=== PATIENT | male | born 1985 | race Caucasian/White ===

== ENCOUNTER 2018-04-20 17:33 | Emergency (ER) | payer SELFPAY ==
[~2018-04-20] VITALS: Ht 188 cm; Wt 100.0 kg
[2018-04-20] MEDS: MORPHINE SULFATE 4 MG/ML, 1ML IVPush PRN ×2 (18:05→19:30)
[2018-04-20] MEDS ORDERED: ONDANSETRON ODT 4 MG PO ONE (18:30)
[2018-04-20] MEDS ORDERED: SODIUM CHLORIDE FLUSH 10ML SYR IVF ONE (18:30)
[2018-04-20] MEDS ORDERED: MORPHINE SULFATE 4 MG/ML, 1ML ONE ×2 (18:37→19:25)
[2018-04-20] MEDS ORDERED: ONDANSETRON ODT 4 MG ONE (18:39)
[2018-04-20 19:32] VITALS: BP 120/81
== END 2018-04-20 21:28 | disposition home or self-care (01) ==
LOC: ED 19:08
DX: S52.572A Other intraarticular fracture of lower end of left radius, initial encounter for closed fracture (principal); S42.035A Nondisplaced fracture of lateral end of left clavicle, initial encounter for closed fracture; S52.501A Unspecified fracture of the lower end of right radius, initial encounter for closed fracture; V29.9XXA Motorcycle rider (driver) (passenger) injured in unspecified traffic accident, initial encounter; Y93.55 Activity, bike riding; Y92.89 Other specified places as the place of occurrence of the external cause; Y99.8 Other external cause status
CPT/HCPCS: 29105; 71046; 73000; 73080; 73110; 96374; 96376; 99284; Q0162

== ENCOUNTER 2018-04-23 04:04 | Emergency (ER) | payer SELFPAY ==
[~2018-04-23] VITALS: Ht 188 cm; Wt 113.1 kg
[2018-04-23 04:08] VITALS: BP 136/86
== END 2018-04-23 05:23 | disposition home or self-care (01) ==
LOC: ED 05:18
DX: S42.92XA Fracture of left shoulder girdle, part unspecified, initial encounter for closed fracture (principal); S52.121A Displaced fracture of head of right radius, initial encounter for closed fracture; S52.122A Displaced fracture of head of left radius, initial encounter for closed fracture; X58.XXXA Exposure to other specified factors, initial encounter; Y93.89 Activity, other specified; Y99.8 Other external cause status; Y92.410 Unspecified street and highway as the place of occurrence of the external cause
CPT/HCPCS: 29125; 99283

== ENCOUNTER 2018-04-26 10:04 | Day surgery (SDC) | payer OTHER ==
[~2018-04-26] VITALS: Ht 188 cm; Wt 111.0 kg
[2018-04-26 10:57] VITALS: BP 131/90
[2018-04-26] MEDS ORDERED: ASPI500T13 PO (11:05)
[2018-04-26] MEDS ORDERED: LORA10TA75 PO (11:05)
[2018-04-26] MEDS ORDERED: LACTATED RINGERS 1,000 ML IV SCH (11:16)
[2018-04-26] MEDS ORDERED: MIDAZOLAM 1 MG/ML, 2ML ONE (12:33)
[2018-04-26] MEDS ORDERED: FENTANYL PF 250 MCG/5ML ONE (12:33)
[2018-04-26] MEDS ORDERED: EPINEPHRINE 1 MG/ML, 1ML ONE (13:03)
[2018-04-26] MEDS ORDERED: BUPIVACAINE/PF 0.5% ONE (13:03)
[2018-04-26] MEDS ORDERED: MEPERIDINE/PF 50 MG/ML ONE (14:24)
[2018-04-26] MEDS ORDERED: PROMETHAZINE 25 MG/ML, 1ML IV PRN (14:30)
[2018-04-26] MEDS ORDERED: MEPERIDINE/PF 25MG/0.5ML IVPush PRN (14:30)
[2018-04-26] MEDS ORDERED: ALBUTEROL SULFATE 2.5 MG/3 ML NPPB PRN (14:30)
[2018-04-26] MEDS ORDERED: FENTANYL PF 100 MCG/2ML IV PRN (14:30)
[2018-04-26] MEDS ORDERED: LABETALOL 5MG/ML, 20ML IV PRN (14:30)
[2018-04-26] MEDS ORDERED: HYDROmorphone 1 MG/ML, 1ML IV PRN (14:30)
[2018-04-26] MEDS ORDERED: hydrALAzine 20 MG/ML, 1ML IV PRN (14:30)
[2018-04-26] MEDS ORDERED: OXYcodone 5 MG/5 ML ORAL.SOL UDC PO PRN (14:30)
[2018-04-26] MEDS ORDERED: LORazepam 2 MG/ML, 1ML IVPush PRN (14:30)
[2018-04-26] MEDS ORDERED: CEFAZOLIN 1,000 MG ONE (15:27)
[2018-04-26] MEDS ORDERED: ONDANSETRON 2MG/ML, 2ML ONE (15:27)
[2018-04-26] MEDS ORDERED: PROPOFOL 10 MG/ML, 20ML ONE (15:27)
[2018-04-26] MEDS ORDERED: DEXAMETHASONE 4 MG/ML, 1ML ONE (15:27)
== END 2018-04-26 16:50 | disposition home or self-care (01) ==
LOC: OUT 10:04
PROVIDERS: ATTEND Orthopaedic Surgery
DX: S52.572A Other intraarticular fracture of lower end of left radius, initial encounter for closed fracture (principal); S42.032A Displaced fracture of lateral end of left clavicle, initial encounter for closed fracture; V89.2XXA Person injured in unspecified motor-vehicle accident, traffic, initial encounter; Y93.55 Activity, bike riding; Y92.89 Other specified places as the place of occurrence of the external cause; Y99.8 Other external cause status; Z79.82 Long term (current) use of aspirin; Z79.899 Other long term (current) drug therapy
CPT/HCPCS: 23515; 25609; 73000; 73100; 76000; C1713; J0171; J0690; J1100; J2175; J2250; J2405; J2704; J3010; J3490; J7120